=== PATIENT | female | born 1955 | race Caucasian/White ===

== ENCOUNTER 2023-12-26 09:10 | Day surgery (SDC) | payer BC ==
[2023-12-26] MEDS: Lactated Ringers 1,000 ML IV SCH (09:25)
[2023-12-26] MEDS ORDERED: Propofol 200 MG/20 ML SDV ONE ×2 (09:43)
[2023-12-26] MEDS ORDERED: fentaNYL 50 MCG/ML SDV ONE ×2 (09:43)
[2023-12-26] MEDS ORDERED: ePHEDrine 50 MG/ML SDV ONE (09:43)
[2023-12-26] MEDS ORDERED: Midazolam 1 MG/ML 2 ML SDV ONE (09:43)
[2023-12-26] MEDS ORDERED: Dexamethasone 4 MG/ML SDV ONE (09:43)
[2023-12-26] MEDS ORDERED: Ondansetron 4 MG/2 ML SDV ONE (09:43)
[2023-12-26] MEDS ORDERED: Ketamine 200 MG/20 ML MDV ONE (09:43)
[2023-12-26 11:22] VITALS: BP 140/79; PULSE 79
== END 2023-12-26 11:15 | disposition home or self-care (01) ==
LOC: CC.SDS 09:10
PROVIDERS: ATTEND Family Medicine
DX: Z12.11 Encounter for screening for malignant neoplasm of colon (principal); K55.20 Angiodysplasia of colon without hemorrhage; Q43.8 Other specified congenital malformations of intestine; K21.9 Gastro-esophageal reflux disease without esophagitis; I10 Essential (primary) hypertension; E66.3 Overweight; E11.9 Type 2 diabetes mellitus without complications; N32.81 Overactive bladder; Z79.899 Other long term (current) drug therapy; Z79.82 Long term (current) use of aspirin
CPT/HCPCS: J1100; J2250; J2405; J2704; J3010; J3490; J7120